=== PATIENT | male | born 1955 | race African-American/Black ===

== ENCOUNTER 2019-01-11 14:20 | Outpatient (CLI) | payer BC ==
--- NOTE | 2019-01-11 15:00 | ULT ---
EXAM: Left lower extremity venous duplex: Deep veins evaluated with color Doppler, spectral analysis, and compression. INDICATIONS: Left lower extremity palpable concern. FINDINGS: Deep veins interrogated include common femoral vein, femoral vein, popliteal vein, and post erior tibial vein. These veins show normal compression and blood flow. No evidence of DVT. Sonographic imaging of the area of concern reveals a focus of decreased echogenicity, slightly greate r than 1 cm diameter which may relate to complex fluid collection, or localized edema. IMPRESSION: 1. No evidence of DVT. 2. Focal decreased echogenicity at the site of concern at the left leg soft tissues. This may relate to a complex fluid collection or localized edema. If finding does not resolve clinically, imaging follow-up is recommended for continued assessment.
== END 2019-01-11 14:21 | disposition home or self-care (01) ==
LOC: SCSULT 14:20
PROVIDERS: ATTEND Nurse Practitioner Family
DX: M79.605 Pain in left leg (principal)